=== PATIENT | male | born 1960 | race Caucasian/White ===

== ENCOUNTER 2017-07-07 20:57 | Emergency (ER) | payer OTHER ==
[2017-07-08] MEDS ORDERED: AMOXICILLIN TR/POT CLAVULANATE 500-125 MG TAB PO ONE (01:16)
--- NOTE | 2017-07-08 01:17 | ER Document Report ---
ED General - General Chief Complaint: Dog Bite Stated Complaint: CHIN/LIP INJURY Time Seen by Provider: 07/07/17 22:55 Notes: Patient is a pleasant 56-year-old male who presents with complaint of a dog bite to the lip. Patient says there is a family dog. He is up-to-date on shots. His last tetanus shot was 3 years ago. No fevers. No other complaints at this time. TRAVEL OUTSIDE OF THE [place] IN LAST 30 DAYS: No - Related Data Allergies/Adverse Reactions: No Known Allergies Allergy (Unverified 07/07/17 22:17) Past Medical History - Social History Smoking Status: Never Smoker Frequency of alcohol use: None Drug Abuse: None Family History: Reviewed & Not Pertinent Patient has suicidal ideation: No Patient has homicidal ideation: No Renal/ Medical History: Denies: Hx Peritoneal Dialysis Review of Systems - Review of Systems Notes: My Normal Review Basic REVIEW OF SYSTEMS: CONSTITUTIONAL : Denies fever, chills, or sweats. Denies recent illness. EENT: Laceration to left lower lip. MUSCULOSKELETAL: Denies neck or back pain or joint pain or swelling. SKIN: Denies rash or skin lesions. NEUROLOGICAL: Denies altered mental status or loss of consciousness. Denies headache. Denies weakness or paralysis or loss of use of either side. Denies problems with gait or speech. Denies sensory or motor loss. ALL OTHER SYSTEMS REVIEWED AND NEGATIVE. Physical Exam - Vital signs Vitals: Temp Pulse Resp BP Pulse Ox 98.7 F 69 16 142/76 H 96 07/07/17 21:59 07/07/17 21:59 07/07/17 21:59 07/07/17 21:59 07/07/17 21:59 - Notes Notes: General Appearance: Well nourished, alert, cooperative, no acute distress, no obvious discomfort. Well-appearing. Vitals: reviewed, See vital signs table. Head: no swelling or tenderness to the head. Several small abrasions to the chin. Eyes: PERRL, EOMI, Conjuctiva clear Mouth: Patient has a very small laceration to the left lip. This does enter the vermilion border; however, the laceration is superficial in the lip does not At all. Throat: No tonsillar inflammation, No airway obstruction Extremities: strength 5/5 in all extremities, good pulses in all extremities, no swelling or tenderness in the extremities, no edema. Skin: warm, dry, appropriate color, no rash Neuro: speech clear, oriented x 3, normal affect, responds appropriately to questions. Course - Re-evaluation Re-evalutation: 07/08/17 07:05 Patient looks well. Patient does have small lip laceration however it is not gaping. It is across the vermilion border. Informed patient that we could place a stitch in it however this does increase risk of infection being as a dog bite. Being that the laceration is not gaping I suggested that we not suture it and keep it clean because I feel that the benefits of closure do not outweigh the risk of infection. Patient agrees with this. Wound was cleaned. Patient was placed on Augmentin. Patient return to ER if there is any redness or swelling or signs of infection. Patient agrees with plan and will be discharged home. Dictation of this chart was performed using voice recognition software; therefore, there may be some unintended grammatical errors. - Vital Signs Vital signs: Temp Pulse Resp BP Pulse Ox 98.7 F 77 18 161/81 H 100 07/07/17 21:59 07/08/17 01:40 07/08/17 01:40 07/08/17 01:40 07/08/17 01:40 Discharge - Discharge Clinical Impression: Dog bite Qualifiers: Encounter type: initial encounter Qualified Code(s): W54.0XXA - Bitten by dog, initial encounter Condition: Good Disposition: HOME, SELF-CARE Additional Instructions: Please take the antibiotic as prescribed. Please return to the ER if you have any spreading redness, swelling, fevers, or feel unwell. Prescriptions: Amox Tr/Potassium Clavulanate [Augmentin 875-125 Tablet] 1 tab PO BID #14 tablet Forms: Return to Work Referrals: LOCALMD,NO [Primary Care Provider] - Follow up as needed
[2017-07-08 01:49] VITALS: BP 161/81
== END 2017-07-08 01:49 | disposition home or self-care (01) ==
LOC: ER 20:57
DX: S01.551A Open bite of lip, initial encounter (principal); W54.0XXA Bitten by dog, initial encounter
CPT/HCPCS: 99283

== ENCOUNTER 2019-09-18 05:48 | Day surgery (SDC) | payer OTHER ==
[~2019-09-18 05:48] MED LIST: LACTATED RINGERS 1000 ML IV PRN; LIDOCAINE 0.5% INJ-PF (5 MG/ML) 50 ML SDV SUBCUT PRN
[2019-09-18] MEDS ORDERED: PROPOFOL INJ 200 MG/20 ML VIAL IV ONE (06:37)
--- NOTE | 2019-09-18 10:33 | Operative Report ---
Operative Report DATE OF SURGERY: 09/18/19 Operative Report: The risk, benefits and alternatives of the procedure including the risk of bleeding, perforation requiring surgery have been explained to the patient in detail and informed consent has been obtained. Patient is placed in a left, lateral decubital position. Timeout was called. Propofol medication is administered. Rectal examination is done which did not reveal any masses, tears or fissures. An Olympus upper scope was introduced into the patient's rectum. Scope was then carefully advanced all the way to the cecum. Cecum was identified by the usual anatomical landmarks including the ileocecal valve as well as the appendiceal office. Photodocumentation is obtained. Scope was then sequentially pulled back via the various segments of the colon including the ascending colon, backslash, transverse colon, splenic flexure, descending colon and finally into the rectosigmoid portions of the colon. Retroflexion maneuvers performed. PREOPERATIVE DIAGNOSIS: Colorectal cancer screening POSTOPERATIVE DIAGNOSIS: Colon polyp attempted snare polypectomy. Polyp is insinuated in situ no tissue obtained. Internal hemorrhoids OPERATION: Colonoscopy with snare polypectomy SURGEON: LISHA SCHAFER ANESTHESIA: LMAC TISSUE REMOVED OR ALTERED: As noted above. COMPLICATIONS: None. ESTIMATED BLOOD LOSS: None. INTRAOPERATIVE FINDINGS: As noted above. PROCEDURE: Patient tolerated the procedure well. No immediate postprocedure complications are noted. Patient is discharged in good condition. Discharge date 09/18/2019. Discharge diet: Regular. Discharge activity: Regular. 2 to 3-week follow-up to discuss findings. Patient is instructed to call the office or proceed to the emergency room should there be any further problems or questions. Wait on the pathology. 5-year surveillance colonoscopy.
[2019-09-18 10:36] VITALS: BP 120/63
== END 2019-09-18 10:00 | disposition home or self-care (01) ==
LOC: OROUT 05:48
PROVIDERS: ATTEND Internal Medicine Gastroenterology
DX: Z12.11 Encounter for screening for malignant neoplasm of colon (principal); D12.6 Benign neoplasm of colon, unspecified; K64.8 Other hemorrhoids; Z86.010 Personal history of colon polyps; Z79.891 Long term (current) use of opiate analgesic; Z03.818 Encounter for observation for suspected exposure to other biological agents ruled out
CPT/HCPCS: 45385; 87635; J2704; C9803; 812